=== PATIENT | female | born 1985 | race Caucasian/White ===

== ENCOUNTER 2020-09-22 19:10 | Emergency (ER) | payer BC, SELFPAY ==
[2020-09-22 19:20] VITALS: BP 141/81; PULSE 82; RESP 18; TEMP 36.9; O2SAT 98; BMI 37.0
--- NOTE | 2020-09-22 19:46 | HMH.EDUTC ---
[facility] Disposition Clinical Impression: Exposure to COVID-19 virus Disposition: Home, Self-Care Condition on Discharge: Good Instructions: DI for COVID-19 (Suspected or Confirmed ), Preventing the Spread of Coronavirus Discharge Instructions Additional Instructions: self isolate until test results are known to be neg Referrals: Ten Huber MD [Primary Care Provider] - Time of Disposition: 19:48 Medical Decision Making - [place] Inquiry Pt receiving controlled substance: No Vital Signs: 09/22/20 19:20 Temperature 98.4 F Temperature Source Oral Pulse Rate [Right Brachial] 82 Respiratory Rate 18 Blood Pressure [Right Arm] 141/81 H Blood Pressure Mean [Right Arm] 101 Blood Pressure Source [Right Arm] Automatic Cuff Blood Pressure Position [Right Arm] Sitting 02 Sat by Pulse Oximetry 98 Oxygen Delivery Method Room Air Orders (Tests/Meds): ORDERS Category Date Time Status Covid-19 Nasal PCR ([facility]) Routine Lab 09/22/20 19:13 Ordered [facility] HPI - General Chief complaint: Urgent Treatment Center Stated complaint: covid test Time Seen by Provider: 09/22/20 19:46 Mode of Arrival: Ambulatory Source of Information: Patient Limitations: No Limitations Description of Symptoms (Recalled from Triage Doc. by RN): REQUESTING COVID TEST. DENIES EXPOSURE OR SYMPTOMS HEENT Symptoms (Recalled from RN notes): No Resp Symptoms (Recalled from RN notes): No Skin Symptoms (Recalled from RN notes): No MS Symptoms (Recalled from RN notes): No Functional Status (Recalled from RN notes): WNL - History of Present Illness Provider Complaint: 35 yr old female presents for covid test. pt states no symptoms - Related Data Allergies Allergy/AdvReac Type Severity Reaction Status Date / Time Penicillins [PENICILLINS] Allergy Unknown UNKNOWN Unverified 09/22/20 19:38 - Worker's Comp Is this a Worker's Comp case?: No [facility] History - Hepatitis A Screen Drug use history?: No High risk sexual behaviors?: No History of sexually transmitted infection?: No Currently employed?: No Childcare worker?: No Do you have indoor plumbing?: Yes Do you have electricity?: Yes Attestation statement:: This patient has been screened for Hepatitis A risk factors. I have reviewed the patient's past medical history: Yes ROS Obtained: Yes Systems reviewed as appropriate & no additional complaints - Constitutional Constitutional: Reports system reviewed and no additional complaints, except as docu, Denies body ache - Eyes Eyes: Reports system reviewed and no additional complaints, except as docu, Denies change in vision - ENT Ears, Nose, Mouth, and Throat: Reports system reviewed and no additional complaints, except as docu, Denies sore throat - Cardiovascular Cardiovascular: Reports system reviewed and no additional complaints, except as docu, Denies chest pain at rest - Respiratory Respiratory: Reports system reviewed and no additional complaints, except as docu, Denies change in phlegm color - Gastrointestinal Gastrointestingal: Reports: system reviewed and no additional complaints, except as docu. Denies: nausea - Genitourinary Female Genitourinary: Reports system reviewed and no additional complaints, except as docu - Musculoskeletal Musculoskeletal: Reports system reviewed and no additional complaints, except as docu, Denies joint swelling - Integumentary/Breasts Skin/Breast: Reports system reviewed and no additional complaints, except as docu, Denies rash - Neurologic Neurologic: Reports system reviewed and no additional complaints, except as docu, Denies dizziness - Endocrine Endocrine: Reports system reviewed and no additional complaints, except as docu, Denies cold intolerance - Hematologic/Lymphatic Henatologic/Lymphatic: Reports system reviewed and no additional complaints, except as docu, Denies lymphadenopathy - Allergic/Immunologic Allergic/Immunologic: Reports system reviewed and no additional co
[2020-09-22 19:55] VITALS: BP 141/81; PULSE 82; RESP 18; TEMP 36.9; O2SAT 98
== END 2020-09-22 19:58 | disposition home or self-care (01) ==
PROVIDERS: Emergency Provider Nurse Practitioner Family; PCP Family Medicine
DX: Z20.822 Contact with and (suspected) exposure to COVID-19 (principal)
CPT/HCPCS: 99202; G0463; U0003

== ENCOUNTER → 2022-11-11 13:38 | Outpatient (CLI) | payer BC, SELFPAY ==
--- NOTE | 2022-11-11 13:41 | XR_ITS ---
FINAL REPORT CLINICAL HISTORY: great toe pain FINDINGS: Three views of the right great toe were obtained. There is no acute fracture or dislocation. Joint spaces are intact. There is no acute soft tissue abnormality. IMPRESSION: No acute osseous abnormality. Reviewed, Interpreted and Dictated by Gissell Saldaña MD Transcribed by May Portillo Authenticated and [facility]
--- NOTE | 2022-11-11 13:41 | XR_ITS ---
FINAL REPORT CLINICAL HISTORY: Great toe pain FINDINGS: Three views of the left great toe were obtained. There is no acute fracture or dislocation. Joint spaces are intact. There is no acute soft tissue abnormality. IMPRESSION: No acute osseous abnormality. Reviewed, Interpreted and Dictated by Gissell Saldaña MD Transcribed by May Portillo Authenticated and [facility]
== END ==
PROVIDERS: PCP Family Medicine; Visit Provider Podiatrist
DX: M79.672 Pain in left foot (principal); M79.671 Pain in right foot
CPT/HCPCS: 73660

== ENCOUNTER 2024-07-11 16:04 | Outpatient (CLI) | payer BC, SELFPAY | END 2024-07-11 23:59 | disposition home or self-care (01) | LOC: LAB.DROPOF 07-12 07:13 | PROVIDERS: PCP Nurse Practitioner; Visit Provider Nurse Practitioner | DX: L60.0 Ingrowing nail (principal) | CPT/HCPCS: 87070; 87077; 87186; 87205 ==

== ENCOUNTER 2025-03-09 07:28 | Outpatient (CLI) | payer BC, SELFPAY ==
--- OUTSIDE RECORDS SUMMARY | 2025-03-09 07:30 | XMS_ITS | Clinical Summary ---
Author Organization [facility] Address [address] [place] [address] Phone Care Team Providers Care Soa Architect Name Role Phone Galilea TENORIO, Olena Noguera [ ] Conditions or Problems Problem Name Problem Code Onset Date Status Entry Date Provider Comment Standard Description Annotate Tobacco abuse 99951380 (SNOMED CT) Active Olena Calero MD Tobacco dependence syndrome Abscess of breast associated with the puerperium 34918434 (SNOMED CT) Active Jordyn Enrique Abscess of breast, associated with childbirth Staph lugdunesis infection B95.7 (ICD-10-CM ) Active Jordyn Enrique Other staphylococcus as the cause of diseases classified elsewhere Medications Medication Instructions Start Date Stop Date Generic Name NDC Provider CEPHALEXIN 500 MG CAPS 2 bid CEPHALEXIN [id number] Olena Calero MD Medications Administered No information available. Allergies, Adverse Reactions, Alerts Allergy Name Reaction Description Start Date Severity Statu s Provider PENICILLIN G SODIUM Moderate Active Vu Pedro Results Date Name Value Unit Range Flag Description Office Visit: Room 10 [employer] SAL[employer] PROFESSIONAL MEDS REVIEW Done Documenta tion of current medications (procedure) ORALTOBACUSE Never Tobacco smoking status CIGARET SMKG yes Tobacco smoking status SMOK STATUS Current every day smoker Tobacco smoking status Lab Report: CULTURE, AEROBIC BACTERIA WITH GRAM STAIN [id number] Light growth o... GE use only - fo r LinkLogic import when terms are not otherwise specified Plan of Care Type Date Detail Pending order Wound Culture an d Sensitivity w/Gram Stain Procedures Code Procedure Name Date Entry Date [id number]-01272 Wound Culture and Sensitivity w/Gram Stai n Vital Signs Date Name Value Unit Description BMI (Body Mass Index) 37.38 kg/m2 Bod y Mass Index (Ratio) Body Temperature 98.2 [degF] temperat ure E&M BP Diastolic 78 mm[Hg] blood pressu re, diastolic BP Systolic 114 mm[Hg] blood pressur e, systolic Heart Rate 64 /min pulse rate Height 60 [in_us] height E&M Respiratory Rate 16 /min respirat ory rate E&M Weight Measured 191.4 [lb_av] weight E& M Weight Measured 191.4 [lb_av] weight E& M Immunizations No information available. Advance Directives Directive Description Start Date NO ADVANCED DIRECTIVES AT THIS TIME 2019
--- OUTSIDE RECORDS SUMMARY | 2025-03-09 07:30 | XMS_ITS | Clinical Summary ---
Author Organization [facility] Address [address] [place] [id number] Care Team Providers Care Fudger Name Role Phone Lacho Albarado MD Primary Care Provider Allergies Active Allergy Reactions Criticality Noted Date Comments Penicillins Rash Low 02/27/2019 Medications No known medications Active Problems Problem Noted Date Diagnosed Date Obesity affecting in third trimester 0 02/28/2019 Delivery by section using transverse incision of lower segment of uterus 02/27/2019 Resolved Problems Problem Noted Date Diagnosed Date Resolved Date Failure to progress in labor 02/28/2019 03/03/2019 Prolonged rupture of membranes 02/28/2019 03/03/2019 Non-reassuring heart r ate with late deceleration 02/28/2019 03/03/2019 Family History Medical History Relation Name Comments Coronary artery disease Father Deep vein thrombosis Father Diabetes Father Melanoma Maternal Grandfather Stroke Maternal Grandfather Relation Name Status Comments Father Maternal Grandfather Social History Tobacco Use Types Packs/Day Years Used Date Smoking Tobacco: Every Day Cigarettes Smokeless Tobacco: Never Tobacco Cessation:Ready to Q uit: Not Asked; Counseling Given: Not Answered Alcohol Use Standard Drinks/Week Comments Yes 0 (1 standard drink = 0.6 oz pur e alcohol) social AUDIT-C Answer Date Recorded Frequency of Alcohol Consumption Never 02/27/2019 Average Number of Drinks Not on file 019 Frequency of Binge Drinking Not on file 02/13 [place] Depression Scale Answer Date Recorded Retired [place] Depression Score 2 03/02/2019 Retired EPD Scale: Thought of Harming Self Unrec ognized value 03/02/2019 Abuse Screen Answer Date Recorded Unsafe at Home or Work/School Not on file Feels Threatened by Someone? Not on file 07/2023 Does Anyone Keep You from Co ntacting Others or Doint Things Outside the Home? Not on file 05/27/2023 Physical Sign of Abuse Present Not on file 1 Housing Stability Answer Date Recorded Current Living Arrangements Not on file 05/16 Potentially Unsafe Housing Conditions Not on yvette e 05/27/2023 Family and Community Support Answer Jasbir e Recorded Help with Day-to-Day Activities Not on file 05/27/2023 Lonely or Isolated Not on file 05/27/2023 Employment Answer Date Recorded Do you want help finding or keeping work or a bentley b? Not on file 05/27/2023 Disabilities Answer Date Recorded Concentrating, Remembering, or Making Decisions Difficulty Not on file 05/27/2023 Doing Errands Independently Difficulty Not on fi le 05/27/2023 Education Answer Date Recorded Help with school or training? Not on file Preferred Language Not on file 05/27/2023 Comments No Sex and Gender Information Value Date Recorded Sex Assigned at Not on file Legal Sex Female 9:36 AM EDT Gender Identity Not on file Sexual Orientation Not on file Last Filed Vital Signs Vital Sign Reading Time Taken Comments Blood Pressure 112/74 03/15/2024 2:36 PM EDT Pulse 77 03/03/2019 8:00 AM EDT Temperature 36.9 C (98.5 F) 03/03/2019 8:00 AM EDT Respiratory Rate 18 03/03/2019 8:00 AM EDT Oxygen Saturation 97% 03/01/2019 7:21 PM EDT Inhaled Oxygen Concentration - - Weight 89.2 kg (196 lb 9.6 oz) 03/15/2024 2:36 P M EDT Height 154.9 cm (5' 0.98 ) 03/15/2024 2:36 PM ED T Body Mass Index 37.17 03/15/2024 2:36 PM EDT Plan of Treatment Health Maintenance Due Date Last Done Comments Pneumococcal Vaccine 0-49 (1 of 2 - PCV) 2006 TDAP/TD VACCINES (1 - Tdap) 2006 ANNUAL PHYSICAL 03/24/2021 HEPATITIS C SCREENING 03/24/2021 COVID-19 Vaccine ( season) 04/16/202403/2021, 05/26/2021 Annual Gynecologic Pelvic an d Breast Exam 03/16/2025 03/15/2024, 03/24/2021 INFLUENZA VACCINE 05/16/2025 PAP SMEAR 03/15/2027 03/15/2024, 0804/2021, 04/13/2019 Procedures Procedure Name Priority Date/Time Associated Diagnosis Comments LIQUID-BASED PAP SMEAR WITH HPV GENOTYPING REGARDLESS OF INTERPRETATION, [facility]) Routine 03/15/2024 3:46 PM EDT Pap test, as part of routine gynecological examination SCANNED - PAP SMEAR 03/24/2021 from Last 3 Months or Most Recently Relevant to Health Maintenance Results * LIQUID-BASED PAP SMEAR WITH HPV GENOTYPING REGARDLESS OF INTERPRETATION ([facility]) (03/15/2024 3:46 PM EDT) Reference Lab Report [facility] [address] [place] [address] or [phone] Lacho Campos M.D., Technical Customer Support Specialist PATIENT NAME LABORATORY NO. [address] CHILDRESS [id number] AGE SEX SSN CLIENT REF # [facility] ([place]) 38 1985 F [id number] [address] REQUESTING Diogo [place] [address] JULIETH WALLACE DATE COLLECTED DATE RECEIVED DATE REPORTED 03/15/2024 03/15/2024 03/22/2024 ThinPrep Pap with Cytyc Imaging DIAGNOSIS: Negative for intraepithelial lesion or malignancy Multiple factors can influence accuracy of Pap tests; therefore, screening at regular intervals is necessary for early cancer detection. COMMENT: Benign cellular changes associated with inflammation are present. SPECIMEN ADEQUACY: SATISFACTORY FOR EVALUATION Transformation zone is present. SOURCE OF SPECIMEN: CERVICAL/ENDOCERV ICAL SLIDES: 1 CLINICAL HISTORY: Pap test, as part of routine gynecological examination HPV HR-HPV POOL: Negative The Aptima HPV assay is an in vitro nucleic acid amplification test for the qualitative detection of E6/E7 viral messenger RNA from 14 high risk types of HPV in cervical specimens. The high risk HPV types detected include: 16, 18, 31, 33, 35, 39, 45, 51, 52, 56, 58, 59, 66, 68 PARAPROFESSIONAL INTERPRETER: ANGELA RESENDIZ (ASCP) CPT CODES: 99188, 12038 03/22/2024 11:16 AM EDT [facility] ThinPrep Vial Collection / Unknown 03/15/2024 3:46 PM EDT 03/15/2024 3:46 PM EDT Julieth Wallace APRN PATHOLOGY/CYTOLOGY ORDERABLES Final Result [facility]
[address] [place] [address], * SCANNED - PAP SMEAR (03/24/2021) Yolette Storey APRN CHART REVIEW TABS Final Result from Last 3 Months or Most Recently Relevant to Health Maintenance Insurance Advance Directives * CPR (Attempt to Resuscitate) (Latest Code Status on File) Date Activated Date Inactivated Comments 02/28/2019 6:29 AM 03/03/2019 4:21 PM Question Answer Comments Code Status (Patient has no pulse and is not breathing): CPR (Attempt to Resuscitate) Medical Interventions (Patie nt has pulse or is breathing): Full * CPR (Attempt to Resuscitate) Date Activated Date Inactivated Comments 02/27/2019 8:36 AM 02/28/2019 6:29 AM Question Answer Comments Code Status (Patient has no pulse and is not breathing): CPR (Attempt to Resuscitate) Medical Interventions (Patie nt has pulse or is breathing): Full Care Teams Fudger Relationship Specialty Start Date End Date Lacho Albarado MD [address] [facility] [address] [facility] [address] [place] [address] PCP - General Family Medicine 05/30/18
--- OUTSIDE RECORDS SUMMARY | 2025-03-09 07:30 | XMS_ITS | Clinical Summary ---
Author Organization [facility] Address [address] [place] [address] Care Team Providers Care Pulp Drier Firer Name Role Phone Ten Huber MD Primary Care Provider [phone] Alyssa Baptiste MD Unavailable Allergies Active Allergy Reactions Criticality Noted Date Comments Penicillins Rash Low 02/27/2019 Medications mupirocin (BACTROBAN) 2 % ointmentIndicati ons:Mammary fistula Use 1 Tube as instructed See instructions. Apply ointment to bilateral nares twice daily starting 5 days prior to surgery. 22 g 0 Active Additional Information Patient not taking.Reported on 10/21/2020 acetaminophen (TYLENOL) 500 mg tablet Take 500 mg by mouth every 4 hours as needed for Pain. Active silver sulfADIAZINE (SILVADENE) 1 % creamIndications :Mammary fistula Apply 1 Applicator topically daily. 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 (07/24/2020): Added automatically from request for surgery [id number] Family History Medical History Relation Name Comments Anesthesia Complications Father dif ficulty coming out of anesthesia Heart Problems Father Relation Name Status Comments Father Social History Tobacco Use Types Packs/Day Years Used Date Smoking Tobacco: Every Day Cigarettes Smokeless Tobacco: Never Tobacco Cessation:Ready to Q uit: No Alcohol Use Standard Drinks/Week Comments Yes 0 (1 standard drink = 0.6 oz pur e alcohol) occasional Comments Unknown Sex and Gender Information Value Date Recorded Sex Assigned at Not on file Legal Sex Female 9:31 AM EST Gender Identity Not on file Sexual Orientation Not on file Last Filed Vital Signs Vital Sign Reading Time Taken Comments Blood Pressure 112/74 08/12/2020 4:35 PM EST Pulse 109 08/12/2020 4:35 PM EST Temperature 36.5 C (97.7 F) 10/21/2020 1:18 PM EST Respiratory Rate 16 07/25/2020 8:12 PM EST Oxygen Saturation 98% 07/25/2020 8:12 PM EST Inhaled Oxygen Concentration - - Weight 88 kg (194 lb 0.1 oz) 07/25/2020 2:08 PM EST Height 152.4 cm (5') 07/25/2020 2:08 PM EST Body Mass Index 37.89 07/25/2020 2:08 PM EST Plan of Treatment Health Maintenance Due Date Last Done Comments Tobacco Cessation Counseling 1999 Lipid Screening 2005 Tetanus Vaccination (Every 1 0 Years) 2005 Cervical Cancer Screening 2008 COVID-19 Vaccine ( - 2023-2 5 season) 2024 Depression Screening 08/16/2024 Influenza Vaccination (#1) 2025 HPV Vaccine Aged Out No longer eligi ble based on patient's age to complete this topic Insurance ANTHEM Care Teams Pulp Drier Firer Relationship Specialty Start Date End Date Ten Huber MD [address] [place] [address] PCP - General Family Medicine 07/23/20 Alyssa Baptiste MD [address] [facility] [place] [address] Surgical Oncology 10/21/20
--- OUTSIDE RECORDS SUMMARY | 2025-03-09 07:30 | XMS_ITS | Encounter Summary ---
Author Organization [facility] Address [address] [place] [address] Care Team Providers Care Personnel Research Psychologist Name Role Phone Ten Huber MD Primary Care Provider [phone] Alyssa Baptiste MD Unavailable Encounter Details Date Type Department Care Team (Latest Contact Info) Description 07/24/2020 Preop Surgical Orders [facility] Physicians - Surgical Oncology, [facility] [address] [facility] [address] [place] [phone] Alyssa Martinez, RN [address] [place], [place] [phone] Mammary fistula (Primary Dx) Social History Tobacco Use Types Packs/Day Years Used Date Smoking Tobacco: Every Day Cigarettes Smokeless Tobacco: Never Alcohol Use Standard Drinks/Week Comments Yes 0 (1 standard drink = 0.6 oz pur e alcohol) occasional Comments Unknown Sex and Gender Information Value Date Recorded Sex Assigned at Not on file Legal Sex Female 9:31 AM EST Gender Identity Not on file Sexual Orientation Not on file COVID-19 Exposure Response Date Recorded In the last month, have you been in contact with someone who was confirmed or suspected to have Coronavirus / COVID-19? No / Unsure 07/25/2020 10:55 AM EST documented as of this encounter Plan of Treatment Not on file documented as of this encounter Results * COVID19 PCR OP (07/25/2020 11:10 AM EST) SCRCOVID Not Detected [facility] Comment: This sample has been tested with the SARS-CoV-2 ELITe MGB Assay and is pending Emergency Use Authorization (EUA) by the FDA. Approval has not yet been granted. This assay has been validated by the [facility] laboratory. This test is a qualitative assay using real time PCR technology by an automated method. 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 [place] [address] PCP - General Family Medicine 07/23/20 [place] [address] [place] [address] [address] [place] [address] Surgical Oncology 10/21/20 documented as of this encounter
[2025-03-14 21:09] LABS: O215-IgE Alpha-Gal 14.50 kU/L (Class IV)
== END 2025-03-09 23:59 | disposition home or self-care (01) ==
PROVIDERS: PCP Family Medicine; Visit Provider Family Medicine
DX: Z91.014 Allergy to mammalian meats (principal)
CPT/HCPCS: 36415; 82785; 86003; 86008